=== PATIENT | female | born 1970 | race African-American/Black ===

== ENCOUNTER 2017-12-31 17:52 | Emergency (ER) | payer MEDICAID ==
[~2017-12-31] VITALS: Ht 162.6 cm; Wt 68.0 kg
[2017-12-31 17:53] VITALS: BP 138/90
[2017-12-31] MEDS ORDERED: HYDROmorphone 1mg/ml Carpuject IVP ONE ×2 (18:00→20:30)
[2017-12-31 19:05] LABS: APPEARANCE,URINE CLEAR; BASOPHILS % (AUTO) 1.9 % (0.0-2.0); BILIRUBIN, URINE NEGATIVE (NEGATIVE); COLOR,URINE PALE YELLOW; EOSINOPHILS % (AUTO) 0.5 % (0.0-3.0); GLUCOSE, URINE (UA) NEGATIVE (NEGATIVE); HEMATOCRIT 33.9 % (37.0-47.0); HEMOGLOBIN 10.5 G/DL (12.0-16.0); KETONES,URINE NEGATIVE (NEGATIVE); LEUKOCYTE ESTERASE ,URINE NEGATIVE (NEGATIVE); MEAN CORPUSCULAR VOLUME 76 FL (80-99); MONOCYTES % (AUTO) 4.7 % (1.0-10.0); NITRITE,URINE NEGATIVE (NEGATIVE); PH,URINE 8 (4.5-8.0); PLATELET COUNT 285 K/UL (150-450); PROTEIN,URINE NEGATIVE (NEGATIVE); RED BLOOD COUNT 4.48 M/UL (4.20-5.40); RED CELL DISTRIBUTION WIDTH 17.2 % (11.6-14.8); UROBILINOGEN,URINE NORMAL MG/DL (0.0-1.0)
[2017-12-31 19:26] LABS: ANION GAP 9 mmol/L (5-15); BLOOD UREA NITROGEN 8 mg/dL (7-18); CALCIUM 9.1 MG/DL (8.5-10.1); CARBON DIOXIDE 26 MMOL/L (21-32); CHLORIDE 105 MMOL/L (98-107); CREATININE 0.7 MG/DL (0.55-1.30); POTASSIUM 5.4 MMOL/L (3.5-5.1); SODIUM 140 MMOL/L (136-145)
[2017-12-31 19:34] LABS: ALANINE AMINOTRANSFERASE 22 U/L (12-78); ALBUMIN 3.6 G/DL (3.4-5.0); ALBUMIN/GLOBULIN RATIO 0.9 (1.0-2.7); ALKALINE PHOSPHATASE 72 U/L (46-116); ASPARTATE AMINO TRANSFERASE 49 U/L (15-37); BILIRUBIN,TOTAL 0.6 MG/DL (0.2-1.0)
[2017-12-31 19:47] VITALS: BP 120/100
--- NOTE | 2017-12-31 20:00 | Emergency Room Report ---
History of Present Illness General Chief Complaint: Abdominal Pain Source: Patient Present Illness HPI Patient presents with severe abdominal pain. It began this morning. She's also been vomiting. She has irritable bowel syndrome. She denies use of alcohol recently. She is transported by paramedics. She denies any fevers or chills. She's had loose stools - they have been brown in color. She denies any vomiting of blood melena hematochezia or hematemesis. Pain is 10/10, constant, epigastric, also diffusely radiating, not to back, crampy and constant. No fevers. H/O IBS. Feels it is this again. Last seen here for this in 2010. Possible use of Bentyl in past. No URI sy, cough, chest pain, rashes, dysuria. LNMP last month. Increased stress. Allergies: Coded Allergies: No Known Allergies (Unverified , 08/01/12) Patient History Past Medical History: see triage record Social History: Reports: drug use - thc; Denies: alcohol use Social History Narrative at home Reviewed Nursing Documentation: PMH: Agreed; PSxH: Agreed Nursing Documentation-PMH Past Medical History: No History, Except For Hx Gastrointestinal Problems: Yes - IBS Review of Systems All Other Systems: negative except mentioned in HPI Physical Exam Vital Signs Date Time Temp Pulse Resp B/P (MAP) Pulse Ox O2 Delivery O2 Flow Rate FiO2 12/31/17 17:43 97.1 88 16 138/90 99 Room Air 97.2 Sp02 EP Interpretation: reviewed, normal General Appearance: well appearing, GCS 15, moderate distress Head: normocephalic Eyes: bilateral eye PERRL, bilateral eye Scleral Injection ENT: moist mucus membranes Neck: supple Respiratory: lungs clear, normal breath sounds Cardiovascular #1: regular rate, rhythm Cardiovascular #2: 2+ radial (R) Gastrointestinal: normal inspection, normal bowel sounds, no mass, non- distended, no rebound, guarding - epigastric, tenderness, decreased bowel sounds Genitourinary: no CVA tenderness Musculoskeletal: back normal, normal range of motion Neurologic: alert, oriented x3, grossly normal Psychiatric: anxious - and in pain Skin: normal inspection, warm/dry Medical Decision Making Diagnostic Impression: Primary Impression: Epigastric abdominal pain Additional Impression: History of IBS ER Course Patient presents with severe epigastric pain. Differential includes gastritis, pancreatitis, GERD, irritable bowel syndrome, gastroenteritis amongst others. She was evaluated with an EKG, abdominal films and labs. The patient will be treated with IV hydration, Zofran and Pepcid and Dilaudid. EKG shows no injury. Abdominal films show possibly of gas. Labs remarkable for normal white count and lipase. Repeat dose dilaudid given. Pain free and tolerating oral intake. Patient stable for outpatient observation and treatment. Laboratory Tests Test 12/31/17 18:20 White Blood Count 6.0 K/UL (4.8-10.8) Red Blood Count 4.48 M/UL (4.20-5.40) Hemoglobin 10.5 G/DL (12.0-16.0) L Hematocrit 33.9 % (37.0-47.0) L Mean Corpuscular Volume 76 FL (80-99) L Mean Corpuscular Hemoglobin 23.3 PG (27.0-31.0) L Mean Corpuscular Hemoglobin Concent 30.9 G/DL (32.0-36.0) L Red Cell Distribution Width 17.2 % (11.6-14.8) H Platelet Count 285 K/UL (150-450) Mean Platelet Volume 6.7 FL (6.5-10.1) Neutrophils (%) (Auto) 71.0 % (45.0-75.0) Lymphocytes (%) (Auto) 22.0 % (20.0-45.0) Monocytes (%) (Auto) 4.7 % (1.0-10.0) Eosinophils (%) (Auto) 0.5 % (0.0-3.0) Basophils (%) (Auto) 1.9 % (0.0-2.0) Prothrombin Time 10.0 SEC (9.30-11.50) Prothrombin Time INR 1.0 (0.9-1.1) PTT 24 SEC (23-33) Urine Color Pale yellow Urine Appearance Clear Urine pH 8 (4.5-8.0) Urine Specific [place] 1.010 (1.005-1.035) Urine Protein Negative (NEGATIVE) Urine Glucose (UA) Negative (NEGATIVE) Urine Ketones Negative (NEGATIVE) Urine Occult Blood Negative (NEGATIVE) Urine Nitrite Negative (NEGATIVE) Urine Bilirubin Negative (NEGATIVE) Urine Urobilinogen Normal MG/DL (0.0-1.0) Urine Leukocyte Esterase Negative (NEGATIVE) Urine HCG, Qualitative Negative (NEGATIVE) Sodium Level 140 MMOL/L (136-145) Potassium Level 5.4 MMOL/L (3.5-5.1) H Chloride Level 105 MMOL/L (98-107) Carbon Dioxide Level 26 MMOL/L (21-32) Anion Gap 9 mmol/L (5-15) Blood Urea Nitrogen 8 mg/dL (7-18) Creatinine 0.7 MG/DL (0.55-1.30) Estimate Glomerular Filtration Rate > 60 mL/min (>60) Glucose Level 95 MG/DL (74-106) Calcium Level 9.1 MG/DL (8.5-10.1) Total Bilirubin 0.6 MG/DL (0.2-1.0) Aspartate Amino Transferase (AST) 49 U/L (15-37) H Alanine Aminotransferase (ALT) 22 U/L (12-78) Alkaline Phosphatase 72 U/L (46-116) Total Protein 7.7 G/DL (6.4-8.2) Albumin 3.6 G/DL (3.4-5.0) Globulin 4.1 g/dL Albumin/Globulin Ratio 0.9 (1.0-2.7) L Lipase 62 U/L (73-393) L Urine Opiates Screen Negative (NEGATIVE) Urine Barbiturates Screen Negative (NEGATIVE) Phencyclidine (PCP) Screen Negative (NEGATIVE) Urine Amphetamines Screen Negative (NEGATIVE) Urine Benzodiazepines Screen Negative (NEGATIVE) Urine Cocaine Screen Negative (NEGATIVE) Urine Marijuana (THC) Screen Positive (NEGATIVE) H Serum Alcohol < 3 mg/dL EKG Diagnostic Results Rate: normal Rhythm: NSR ST Segments: no acute changes Rhythm Strip Diag. Results EP Interpretation: yes Rhythm: NSR, no PVC's, no ectopy Other X-Ray Diagnostic Results Other X-Ray Diagnostic Results : X-Ray ordered: abd # of Views/Limited Vs Complete: 2 View Indication: Pain EP Interpretation: Yes Interpretation: nonspecific bowel gas, no sbo, other - paucity of gas Impression: Other Electronically Signed by: Electronically signed by Everette Rios MD Last Vital Signs Date Time Temp Pulse Resp B/P (MAP) Pulse Ox O2 Delivery O2 Flow Rate FiO2 12/31/17 21:59 98.3 73 16 125/56 100 Room Air 98.3 Status: improved Disposition: HOME, SELF-CARE Condition: Improved Scripts Famotidine (PEPCID) 20 Mg Tablet 20 MG ORAL DAILY, #720 TAB 0 Refills Prov: Everette Rios M.D. 12/31/17 Acetaminophen (Tylenol) 325 Mg Tablet 650 MG ORAL Q6H PRN for Prn Pain/Headache/Temp > 101, #20 TAB 0 Refills Prov: Everette Rios M.D. 12/31/17 Ondansetron Odt* (ZOFRAN ODT*) 4 Mg Tab.rapdis 4 MG ORAL Q8H PRN for Nausea & Vomiting, #6 TAB 1 Refill Prov: Everette Rios M.D. 12/31/17 Referrals: [facility],REFERRING (PCP) Everette Rios M.D. Dec 31, 2017 20:00
[2017-12-31 21:08] VITALS: BP 116/68
[2017-12-31] MEDS ORDERED: PEPCID20 MG ORAL (21:49)
[2017-12-31] MEDS ORDERED: ZOFRAN ODT4 MG ORAL (21:49)
[2017-12-31] MEDS ORDERED: TYLENOL325 MG ORAL (21:49)
[2017-12-31 21:58] VITALS: BP 125/56
[2017-12-31 21:59] VITALS: BP 125/56
--- NOTE | 2018-01-01 09:44 | Diagnostic Imaging Report ---
Indication: Abdominal pain Technique: Supine view of the abdomen Comparison: 03/16/2010 Findings: Slight paucity of bowel gas noted. No gaseous distention of large or small bowel. No unusual masses or calcifications. No significant interim change Impression: No acute process This agrees with the preliminary interpretation provided by the emergency room physician
== END 2017-12-31 22:00 | disposition home or self-care (01) ==
LOC: EDBD 17:52 → EMR 18:25
DX: R10.13 Epigastric pain (principal); Z87.19 Personal history of other diseases of the digestive system
CPT/HCPCS: 36415; 74018; 80053; 80307; 80329; 81003; 81025; 83690; 85025; 85610; 85730; 93005; 96361; 96374; 96375; 99284; J1170; J2405; S0028

== ENCOUNTER 2018-03-26 11:27 | Emergency (ER) | payer MEDICAID ==
[~2018-03-26] VITALS: Ht 175.3 cm; Wt 68.0 kg
[~2018-03-26 11:27] MED LIST: PEPCID20 MG ORAL; TYLENOL325 MG ORAL; ZOFRAN ODT4 MG ORAL
[2018-03-26] MEDS ORDERED: Mylanta II UD 30ml ORAL ONE (12:00)
[2018-03-26] MEDS ORDERED: Lidocaine 2% Visc 15ml soln ORAL ONE (12:00)
[2018-03-26] MEDS ORDERED: Morphine Sulfate 4mg/ml Inj IVP ONE (12:15)
[2018-03-26] MEDS ORDERED: Metoclopramide 10mg/2ml Inj IVP ONE (12:15)
[2018-03-26 12:45] VITALS: BP 178/81
[2018-03-26 13:01] LABS: BASOPHILS % (AUTO) 1.7 % (0.0-2.0); EOSINOPHILS % (AUTO) 0.8 % (0.0-3.0); HEMATOCRIT 33.4 % (37.0-47.0); HEMOGLOBIN 9.6 G/DL (12.0-16.0); LYMPHOCYTES % (AUTO) 22.4 % (20.0-45.0); MEAN CORPUSCULAR VOLUME 70 FL (80-99); MONOCYTES % (AUTO) 4.9 % (1.0-10.0); NEUTROPHILS % (AUTO) 70.2 % (45.0-75.0); PLATELET COUNT 308 K/UL (150-450); RED BLOOD COUNT 4.75 M/UL (4.20-5.40); RED CELL DISTRIBUTION WIDTH 18.8 % (11.6-14.8); WHITE BLOOD COUNT 7.6 K/UL (4.8-10.8)
[2018-03-26 13:04] LABS: APPEARANCE,URINE SLIGHTLY CLOUDY; BILIRUBIN, URINE NEGATIVE (NEGATIVE); COLOR,URINE PALE YELLOW; GLUCOSE, URINE (UA) NEGATIVE (NEGATIVE); KETONES,URINE NEGATIVE (NEGATIVE); LEUKOCYTE ESTERASE ,URINE NEGATIVE (NEGATIVE); NITRITE,URINE NEGATIVE (NEGATIVE); PH,URINE 6 (4.5-8.0); PROTEIN,URINE NEGATIVE (NEGATIVE); UROBILINOGEN,URINE NORMAL MG/DL (0.0-1.0)
[2018-03-26 13:25] LABS: ANION GAP 7 mmol/L (5-15); BLOOD UREA NITROGEN 7 mg/dL (7-18); CALCIUM 9.1 MG/DL (8.5-10.1); CARBON DIOXIDE 26 MMOL/L (21-32); CHLORIDE 106 MMOL/L (98-107); CREATININE 0.8 MG/DL (0.55-1.30); POTASSIUM 3.9 MMOL/L (3.5-5.1); SODIUM 139 MMOL/L (136-145)
[2018-03-26 13:30] LABS: ALANINE AMINOTRANSFERASE 21 U/L (12-78); ALBUMIN 3.7 G/DL (3.4-5.0); ALKALINE PHOSPHATASE 83 U/L (46-116); ASPARTATE AMINO TRANSFERASE 18 U/L (15-37); BILIRUBIN,TOTAL 0.6 MG/DL (0.2-1.0)
--- NOTE | 2018-03-26 13:39 | Emergency Room Report ---
History of Present Illness General Chief Complaint: Abdominal Pain Source: Patient Present Illness HPI Patient has a history of irritable bowel syndrome and chronic abdominal pain. She had been seen here multiple times previously for the same symptoms. She has had a very thorough workup and is followed by demo specialist. She hasn' t been here in a while and states that she had been going to [facility] for all of her care. She just started returning back to this hospital last month. She states that this is the typical irritable bowel episode. She denies new symptoms. She denies nausea or vomiting. She denies fever or chills. She has no other complaints. Allergies: Coded Allergies: No Known Allergies (Unverified , 08/01/12) Patient History Past Medical History: see triage record, other - IBS Social History: Denies: smoking, alcohol use, drug use Now: No Reviewed Nursing Documentation: PMH: Agreed; PSxH: Agreed Nursing Documentation-PM Past Medical History: No History, Except For Hx Gastrointestinal Problems: Yes - IBS Review of Systems All Other Systems: negative except mentioned in HPI Physical Exam Vital Signs Date Time Temp Pulse Resp B/P (MAP) Pulse Ox O2 Delivery O2 Flow Rate FiO2 03/26/18 11:34 98.8 70 19 173/80 96 Room Air 98.8 Sp02 EP Interpretation: reviewed, normal General Appearance: no apparent distress, alert, GCS 15, non-toxic Head: normocephalic, atraumatic Eyes: bilateral eye normal inspection, bilateral eye PERRL ENT: hearing grossly normal, normal pharynx, no angioedema, normal voice Neck: full range of motion, supple/symm/no masses Respiratory: chest non-tender, lungs clear, normal breath sounds, no respiratory distress, no retraction, no accessory muscle use, speaking full sentences Cardiovascular #1: regular rate, rhythm, no edema Gastrointestinal: normal bowel sounds, soft, non-distended, no guarding, no rebound, tenderness - TTP in the epigastrium Rectal: deferred Musculoskeletal: back normal, gait/station normal, normal range of motion, non- tender Neurologic: alert, oriented x3, responsive, motor strength/tone normal, sensory intact, speech normal Psychiatric: judgement/insight normal, memory normal, mood/affect normal, no suicidal/homicidal ideation Skin: normal color, no rash, warm/dry, well hydrated Medical Decision Making Diagnostic Impression: Primary Impression: Chronic pain ER Course This patient has a clinical presentation consistent with chronic abdominal pain/ gastritis. The location of the pain and history and physical examination is consistent with this. I considered other concerning differentials, to include appendicitis, cholelithiasis, cholecystitis, pancreatitis, perforated viscus, aortic aneurysm, and pyelonephritis to name a few. However, laboratory workup in combination with medical and surgical history and physical exam makes these unlikely at this time. I also suspect that this patient may have narcotic dependence and is seeking narcotics. I did educate the patient on close return precautions and followup instructions. Laboratory Tests Test 03/26/18 12:40 White Blood Count 7.6 K/UL (4.8-10.8) Red Blood Count 4.75 M/UL (4.20-5.40) Hemoglobin 9.6 G/DL (12.0-16.0) L Hematocrit 33.4 % (37.0-47.0) L Mean Corpuscular Volume 70 FL (80-99) L Mean Corpuscular Hemoglobin 20.2 PG (27.0-31.0) L Mean Corpuscular Hemoglobin Concent 28.7 G/DL (32.0-36.0) L Red Cell Distribution Width 18.8 % (11.6-14.8) H Platelet Count 308 K/UL (150-450) Mean Platelet Volume 6.5 FL (6.5-10.1) Neutrophils (%) (Auto) 70.2 % (45.0-75.0) Lymphocytes (%) (Auto) 22.4 % (20.0-45.0) Monocytes (%) (Auto) 4.9 % (1.0-10.0) Eosinophils (%) (Auto) 0.8 % (0.0-3.0) Basophils (%) (Auto) 1.7 % (0.0-2.0) Urine Color Pale yellow Urine Appearance Slightly cloudy Urine pH 6 (4.5-8.0) Urine Specific [place] 1.015 (1.005-1.035) Urine Protein Negative (NEGATIVE) Urine Glucose (UA) Negative (NEGATIVE) Urine Ketones Negative (NEGATIVE) Urine Occult Blood Negative (NEGATIVE) Urine Nitrite Negative (NEGATIVE) Urine Bilirubin Negative (NEGATIVE) Urine Urobilinogen Normal MG/DL (0.0-1.0) Urine Leukocyte Esterase Negative (NEGATIVE) Urine RBC 0-2 /HPF (0 - 2) Urine WBC 0-2 /HPF (0 - 2) Urine Squamous Epithelial Cells Many /LPF (NONE/OCC) H Urine Bacteria Few /HPF (NONE) Urine HCG, Qualitative Negative (NEGATIVE) Sodium Level 139 MMOL/L (136-145) Potassium Level 3.9 MMOL/L (3.5-5.1) Chloride Level 106 MMOL/L (98-107) Carbon Dioxide Level 26 MMOL/L (21-32) Anion Gap 7 mmol/L (5-15) Blood Urea Nitrogen 7 mg/dL (7-18) Creatinine 0.8 MG/DL (0.55-1.30) Estimate Glomerular Filtration Rate > 60 mL/min (>60) Glucose Level 90 MG/DL (74-106) Calcium Level 9.1 MG/DL (8.5-10.1) Total Bilirubin 0.6 MG/DL (0.2-1.0) Aspartate Amino Transferase (AST) 18 U/L (15-37) Alanine Aminotransferase (ALT) 21 U/L (12-78) Alkaline Phosphatase 83 U/L (46-116) Total Protein 7.5 G/DL (6.4-8.2) Albumin 3.7 G/DL (3.4-5.0) Globulin 3.8 g/dL Albumin/Globulin Ratio 1.0 (1.0-2.7) Lipase 102 U/L (73-393) Last Vital Signs Date Time Temp Pulse Resp B/P (MAP) Pulse Ox O2 Delivery O2 Flow Rate FiO2 03/26/18 12:54 98.8 03/26/18 11:34 70 19 173/80 96 Room Air Status: improved Disposition: HOME, SELF-CARE Condition: Improved Referrals: NON PHYSICIAN (PCP) Patient Instructions: Abdominal Pain, Adult Priyanka Meng DO Mar 26, 2018 13:39
[2018-03-26 14:00] VITALS: BP 158/76
[2018-03-26] MEDS ORDERED: NEXIUM40 MG ORAL (14:22)
[2018-03-26] MEDS ORDERED: ZOFRAN ODT8 MG ORAL (14:22)
[2018-03-26] MEDS ORDERED: PEPCID AC20 M2 PO (14:22)
[2018-03-26 14:47] VITALS: BP 136/73
== END 2018-03-26 14:51 | disposition home or self-care (01) ==
LOC: EMR 12:15
DX: R10.9 Unspecified abdominal pain (principal); G89.29 Other chronic pain; Z87.19 Personal history of other diseases of the digestive system
CPT/HCPCS: 36415; 80053; 81003; 81025; 83690; 85025; 96361; 96366; 96374; 96375; 99284; J2270; J2405; J2765; S0028; 96360

== ENCOUNTER 2018-12-05 20:04 | Emergency (ER) | payer MEDICAID ==
[~2018-12-05] VITALS: Ht 172.7 cm; Wt 72.6 kg
[~2018-12-05 20:04] MED LIST changes: +NEXIUM40 MG ORAL; +PEPCID AC20 M2 PO; +ZOFRAN ODT8 MG ORAL
--- NOTE | 2018-12-05 20:19 | NUR ---
ED Nurse Note: pt came with ra34 from home, c/o abd pain for x1 day per pt she is experiencing nausea and vomiting per ra 34 pt was give 4mg of zofran prior to arrival
[2018-12-05 20:21] VITALS: BP 167/95
[2018-12-05] MEDS ORDERED: DiphenhydrAMINE 50mg/ml Inj IVP ONE (20:30)
[2018-12-05] MEDS ORDERED: Capsaicin 0.075% Cream TOPIC ONE (20:30)
[2018-12-05] MEDS ORDERED: Metoclopramide 10mg/2ml Inj IVP ONE (20:30)
[2018-12-05 20:33] LABS: HEMATOCRIT 37.1 % (37.0-47.0); HEMOGLOBIN 10.8 G/DL (12.0-16.0); LYMPHOCYTES % (AUTO) 17.4 % (20.0-45.0); MEAN CORPUSCULAR VOLUME 72 FL (80-99); MONOCYTES % (AUTO) 2.7 % (1.0-10.0); NEUTROPHILS % (AUTO) 78.9 % (45.0-75.0); PLATELET COUNT 279 K/UL (150-450); RED BLOOD COUNT 5.13 M/UL (4.20-5.40); RED CELL DISTRIBUTION WIDTH 19.3 % (11.6-14.8); WHITE BLOOD COUNT 7.1 K/UL (4.8-10.8)
[2018-12-05 20:42] LABS: ANION GAP 11 mmol/L (5-15); BLOOD UREA NITROGEN 13 mg/dL (7-18); CALCIUM 7.9 MG/DL (8.5-10.1); CARBON DIOXIDE 23 MMOL/L (21-32); CHLORIDE 111 MMOL/L (98-107); CREATININE 0.7 MG/DL (0.55-1.30); POTASSIUM 3.3 MMOL/L (3.5-5.1); SODIUM 144 MMOL/L (136-145)
--- NOTE | 2018-12-05 20:42 | Emergency Room Report ---
History of Present Illness General Chief Complaint: Abdominal Pain Source: Patient (Priyanka Meng DO) Present Illness HPI Patient has a history of cyclic vomiting syndrome and irritable bowel syndrome. She presents with nausea, vomiting and epigastric pain for the past day. She has been unable to tolerate anything orally. She denies fever or chills. She denies headache or neck pain. She denies cough or congestion. She denies shortness of breath. She has no other complaints. (Priyanka Meng DO) Allergies: Coded Allergies: No Known Allergies (Unverified , 08/01/12) Patient History Past Medical History: see triage record, other - Cyclic vomiting syndrome Social History: Reports: drug use; Denies: smoking, alcohol use Now: No Reviewed Nursing Documentation: PMH: Agreed; PSxH: Agreed (Priyanka Meng DO) Nursing Documentation-PMH Hx Gastrointestinal Problems: Yes - IBS (Priyanka Meng DO) Review of Systems All Other Systems: negative except mentioned in HPI (Priyanka Meng DO) Physical Exam Vital Signs Date Time Temp Pulse Resp B/P (MAP) Pulse Ox O2 Delivery O2 Flow Rate FiO2 12/05/18 20:05 99.0 80 22 167/95 95 Room Air Sp02 EP Interpretation: reviewed, normal General Appearance: no apparent distress, alert, GCS 15, non-toxic Head: normocephalic, atraumatic Eyes: bilateral eye normal inspection, bilateral eye PERRL ENT: hearing grossly normal, normal pharynx, no angioedema, normal voice Neck: full range of motion, supple/symm/no masses Respiratory: chest non-tender, lungs clear, normal breath sounds, no respiratory distress, no retraction, no accessory muscle use, speaking full sentences Cardiovascular #1: regular rate, rhythm, no edema Gastrointestinal: normal bowel sounds, soft, non-distended, no guarding, no rebound, tenderness - epigastrium Rectal: deferred Musculoskeletal: back normal, gait/station normal, normal range of motion, non- tender Neurologic: alert, oriented x3, responsive, motor strength/tone normal, sensory intact, speech normal Psychiatric: judgement/insight normal, memory normal, mood/affect normal, no suicidal/homicidal ideation Skin: normal color, no rash, warm/dry, well hydrated (Priyanka Meng ) Medical Decision Making Diagnostic Impression: Primary Impression: Cyclic vomiting syndrome Laboratory Tests Test 12/05/18 20:20 12/05/18 22:27 White Blood Count 7.1 K/UL (4.8-10.8) Red Blood Count 5.13 M/UL (4.20-5.40) Hemoglobin 10.8 G/DL (12.0-16.0) L Hematocrit 37.1 % (37.0-47.0) Mean Corpuscular Volume 72 FL (80-99) L Mean Corpuscular Hemoglobin 21.1 PG (27.0-31.0) L Mean Corpuscular Hemoglobin Concent 29.3 G/DL (32.0-36.0) L Red Cell Distribution Width 19.3 % (11.6-14.8) H Platelet Count 279 K/UL (150-450) Mean Platelet Volume 5.7 FL (6.5-10.1) L Neutrophils (%) (Auto) 78.9 % (45.0-75.0) H Lymphocytes (%) (Auto) 17.4 % (20.0-45.0) L Monocytes (%) (Auto) 2.7 % (1.0-10.0) Eosinophils (%) (Auto) 0.0 % (0.0-3.0) Basophils (%) (Auto) 1.0 % (0.0-2.0) Sodium Level 144 MMOL/L (136-145) Potassium Level 3.3 MMOL/L (3.5-5.1) L Chloride Level 111 MMOL/L (98-107) H Carbon Dioxide Level 23 MMOL/L (21-32) Anion Gap 11 mmol/L (5-15) Blood Urea Nitrogen 13 mg/dL (7-18) Creatinine 0.7 MG/DL (0.55-1.30) Estimate Glomerular Filtration Rate > 60 mL/min (>60) Glucose Level 104 MG/DL (74-106) Calcium Level 7.9 MG/DL (8.5-10.1) L Total Bilirubin 0.5 MG/DL (0.2-1.0) Aspartate Amino Transferase (AST) 17 U/L (15-37) Alanine Aminotransferase (ALT) 20 U/L (12-78) Alkaline Phosphatase 75 U/L (46-116) Total Protein 6.4 G/DL (6.4-8.2) Albumin 3.0 G/DL (3.4-5.0) L Globulin 3.4 g/dL Albumin/Globulin Ratio 0.9 (1.0-2.7) L Urine Color Pale yellow Urine Appearance Clear Urine pH 7 (4.5-8.0) Urine Specific [place] 1.010 (1.005-1.035) Urine Protein 2+ (NEGATIVE) H Urine Glucose (UA) Negative (NEGATIVE) Urine Ketones 3+ (NEGATIVE) H Urine Blood 1+ (NEGATIVE) H Urine Nitrite Negative (NEGATIVE) Urine Bilirubin Negative (NEGATIVE) Urine Urobilinogen Normal MG/DL (0.0-1.0) Urine Leukocyte Esterase Negative (NEGATIVE) Urine RBC Pending Urine WBC Pending Urine Squamous Epithelial Cells Pending Urine Bacteria Pending Urine Opiates Screen Pending Urine Barbiturates Screen Pending Phencyclidine (PCP) Screen Pending Urine Amphetamines Screen Pending Urine Benzodiazepines Screen Pending Urine Cocaine Screen Pending Urine Marijuana (THC) Screen Pending (Colielizabetho,Priyanka M. DO) ER Course Please see above note. Discussed with Dr. Roth who accepts the patient at [facility]. Morphine repeated. (Everette Rios MD) Last Vital Signs Date Time Temp Pulse Resp B/P (MAP) Pulse Ox O2 Delivery O2 Flow Rate FiO2 12/05/18 20:21 80 22 Room Air 12/05/18 20:21 99.0 167/95 95 (Araceliso,Priyanka M. DO) Last Vital Signs Date Time Temp Pulse Resp B/P (MAP) Pulse Ox O2 Delivery O2 Flow Rate FiO2 12/06/18 01:54 98.8 99 19 126/72 100 Room Air Status: improved (Everette Rios MD) Disposition: XFER SHT-TRM HOSP Condition: Serious Colielizabetho,Priyanka M. DO Dec 05, 2018 20:42 Everette Rios MD Dec 06, 2018 00:08
[2018-12-05 20:47] LABS: ALANINE AMINOTRANSFERASE 20 U/L (12-78); ALBUMIN/GLOBULIN RATIO 0.9 (1.0-2.7); ALKALINE PHOSPHATASE 75 U/L (46-116); ASPARTATE AMINO TRANSFERASE 17 U/L (15-37); BILIRUBIN,TOTAL 0.5 MG/DL (0.2-1.0)
[2018-12-05] MEDS ORDERED: Ketorolac 30mg Inj IV ONE (21:45)
[2018-12-05 22:10] VITALS: BP 127/80
--- NOTE | 2018-12-05 22:36 | NUR ---
ED Nurse Note: pt vomitted, informed ermd, awaiting futher orders
[2018-12-05] MEDS ORDERED: Morphine Sulfate 4mg/ml Inj (IV USE ONLY) IVP ONE (22:45)
[2018-12-05 22:48] LABS: APPEARANCE,URINE CLEAR; BILIRUBIN, URINE NEGATIVE (NEGATIVE); COLOR,URINE PALE YELLOW; GLUCOSE, URINE (UA) NEGATIVE (NEGATIVE); KETONES,URINE 3+ (NEGATIVE); LEUKOCYTE ESTERASE ,URINE NEGATIVE (NEGATIVE); NITRITE,URINE NEGATIVE (NEGATIVE); PH,URINE 7 (4.5-8.0); PROTEIN,URINE 2+ (NEGATIVE); UROBILINOGEN,URINE NORMAL MG/DL (0.0-1.0)
[2018-12-06] VITALS: BP 129/75
[2018-12-06] MEDS ORDERED: Morphine Sulfate 4mg/ml Inj (IV USE ONLY) IVP ONE (01:30)
--- NOTE | 2018-12-06 01:52 | NUR ---
ED Nurse Note: TELEPHONE REPORT GIVEN TO KENN GARCIA
--- NOTE | 2018-12-06 01:53 | NUR ---
ED Nurse Note: LIFELINE AT BEDSIDE PT PREPARED FOR TRANPORT, PT IS AOX4, PT TOOK ALL BELONGINGS, PT IS IN NO ACUTRE DISTRESS PT IS ON ROOM AIR 100%
[2018-12-06 01:54] VITALS: BP 126/72
== END 2018-12-06 02:00 | disposition short-term general hospital (02) ==
LOC: EDBD 20:04 → EMR 20:45
DX: G43.A0 Cyclical vomiting, in migraine, not intractable (principal)
CPT/HCPCS: 36415; 80053; 80307; 81003; 85025; 96361; 96374; 96375; 96376; 99284; J1200; J1885; J2270; J2765; S0028